=== PATIENT | female | born 1975 | race African-American/Black ===

== ENCOUNTER 2024-01-24 13:39 | Emergency (ER) | payer OTHER, SELFPAY ==
[2024-01-24 13:55] VITALS: BP 172/97; PULSE 83; RESP 16; TEMP 36.8; O2SAT 98
[2024-01-24 13:57] VITALS: BP 172/97; PULSE 83; RESP 16; TEMP 36.8; O2SAT 98
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
== END 2024-01-24 14:21 | disposition home or self-care (01) ==
PROVIDERS: Emergency Provider Nurse Practitioner; PCP Nurse Practitioner Family
DX: S46.812A Strain of other muscles, fascia and tendons at shoulder and upper arm level, left arm, initial encounter (principal); S46.811A Strain of other muscles, fascia and tendons at shoulder and upper arm level, right arm, initial encounter; S16.1XXA Strain of muscle, fascia and tendon at neck level, initial encounter; V43.53XA Car driver injured in collision with pick-up truck in traffic accident, initial encounter; E78.00 Pure hypercholesterolemia, unspecified; I10 Essential (primary) hypertension
CPT/HCPCS: 99213; G0463